=== PATIENT | male | born 1995 | race Caucasian/White ===

== ENCOUNTER 2022-04-08 17:15 | Emergency (ER) | payer OTHER ==
[2022-04-08] MEDS ORDERED: Lidocaine 1% PF 2 ML SDV INJECT ONE (18:16)
[2022-04-08] MEDS ORDERED: Diphtheria,Pertussis(Acell),Tetanus Vaccine 0.5 ML Syringe IM ONE (18:16)
== END 2022-04-08 18:30 | disposition home or self-care (01) ==
LOC: MW.ED 17:15
DX: S61.012A Laceration without foreign body of left thumb without damage to nail, initial encounter (principal); W26.8XXA Contact with other sharp object(s), not elsewhere classified, initial encounter
CPT/HCPCS: 12001; 99282